=== PATIENT | female | born 1970 | race Caucasian/White ===

== ENCOUNTER → 2016-06-09 | Outpatient (CLI) | payer BC ==
[~2016-06-09] MED LIST: BCPILLS PO; CETI10CH PO
--- NOTE | 2016-06-09 16:26 | MAMMOGRAPHY REPORT ---
BILATERAL DIGITAL SCREENING MAMMOGRAM TOMOSYNTHESIS WITH CAD: 06/09/2016 TECHNIQUE: Breast tomosynthesis in addition to standard 2D mammography was performed. Current study was also evaluated with a Computer Aided Detection (CAD) system. COMPARISON: Comparison is made to exam dated: 09/15/2014 mammogram - [facility]. BREAST COMPOSITION: The tissue of both breasts is heterogeneously dense, which may obscure small ma sses. FINDINGS: No suspicious masses, calcifications, or areas of architectural distortion are noted in e ither breast. There has been no significant interval change compared to prior exams. A benign intra mammary lymph node is again seen within the right upper outer quadrant. Small mass in the right low er inner quadrant is stable and consistent with a skin mole. Scattered bilateral benign-appearing c alcifications are again noted. IMPRESSION: ACR BI-RADS CATEGORY 2: BENIGN There is no mammographic evidence of malignancy. A 1 year screening mammogram is recommended. The p atient will receive written notification of the results. Approximately 10% of breast cancers are not detected with mammography. A negative mammographic repor t should not delay biopsy if a clinically suggestive mass is present. Maria Guadalupe Dukes M.D. /:06/09/2016 12:40:26 Gold Leaf Roller: Myrna REID(Jessica)(M), [facility] letter sent: Normal 1/2 BI-RADS Code: ACR BI-RADS Category 2: Benign
== END | disposition home or self-care (01) ==
LOC: C.MAMM 09:55
PROVIDERS: ATTEND Obstetrics & Gynecology
DX: Z12.31 Encounter for screening mammogram for malignant neoplasm of breast (principal)

== ENCOUNTER 2017-03-05 19:37 | Emergency (ER) | payer BC ==
[~2017-03-05] VITALS: Ht 157.5 cm; Wt 53.9 kg
[~2017-03-05 19:37] MED LIST changes: -BCPILLS PO
[2017-03-05 19:40] VITALS: TEMP 36.6; Ht 157.5 cm; Wt 53.9 kg
[2017-03-05] MEDS ORDERED: CETI10CH PO (20:19)
[2017-03-05] MEDS ORDERED: FLUT0.15 NAE (20:19)
--- NOTE | 2017-03-05 20:35 | EMERGENCY ROOM VISIT NOTE ---
History Report prepared by Angelika: Mary Castaneda Under the Supervision of: Dr. Jordyn De La Cruz D.O. First contact with patient: 19:42 Chief Complaint: PALPITATIONS Stated Complaint: IRREGULAR HEART BEAT, PALPITATIONS History of Present Illness The patient is a 46 year old female who presents to the Emergency Room with complaints of worsening heart palpitations that started a few weeks ago. The patient notes that she started feeling the palpitations worsen a couple of days ago. She states that the palpitations were more consistent today than usual. She denies experiencing any patterns of the palpitations. The patient reports that she was experiencing some light headedness throughout the day today. The patient notes that she has recently introduced caffeine back into her diet in small amounts. The patient notes that there is a family history of a thyroid disfunction. She reports that she was tested for thyroid disfunction 2 years ago and the results were negative. The patient denies any pain, fatigue, swelling, cough, or shortness of breath. Source of History: patient Onset: a few weeks ago Position: other (heart palpitations ) Symptom Intensity: mild Quality: other (palpitations) Timing: worsening Associated Symptoms: No cough, No SOB, No fatigue Note: The patient denies any swelling. Review of Systems Pt denies headache, change in vision, fevers, chest pain, shortness of breath, nausea, vomiting, diarrhea, pain with urination, and melena. Past Medical & Surgical Medical Problems: (1) Exercise-induced asthma Family History Blood clots Social History Smoking Status: Never Smoker Smokeless Tobacco Use: No Drug Use: none Marital Status: single Occupation Status: employed Current/Historical Medications Scheduled Control Pills ( Control Pills), 1 TAB PO DAILY Cetirizine Hcl (Cetirizine Hcl), 10 MG PO DAILY Fluticasone Propionate (Nasal) (Flonase Allergy Relief), 2 SPRAYS SHAVON DAILY Allergies Coded Allergies: Erythromycin (Verified Allergy, Severe, HIVES WHEN USING OPTH OINT, ) Macrolides (Verified Allergy, Severe, HIVES WHEN USING OPTH OINT, 04/30/16 ) Penicillins (Verified Allergy, Severe, HIVES, AMOXIL, 04/30/16) Sulfa Drugs (Verified Allergy, Mild, 04/30/16) Physical Exam Vital Signs Date Time Temp Pulse Resp B/P (MAP) Pulse Ox O2 Delivery O2 Flow Rate FiO2 03/05/17 21:34 60 18 111/65 97 03/05/17 20:38 64 03/05/17 19:57 Room Air 03/05/17 19:40 36.6 83 20 133/83 100 Physical Exam GENERAL: alert, well appearing, well nourished, no distress, non-toxic EYE EXAM: normal conjunctiva, PERRL and EOM's grossly intact OROPHARYNX: no exudate, no erythema, lips, buccal mucosa, and tongue normal and mucous membranes are moist NECK: supple, no nuchal rigidity, no adenopathy, non-tender LUNGS: Clear to auscultation. Normal chest wall mechanics HEART: no murmurs, S1 normal and S2 normal. PBC noted on tele. ABDOMEN: abdomen soft, non-tender, normo-active bowel sounds, no masses, no rebound or guarding. BACK: Back is symmetrical on inspection and there is no deformity, no midline tenderness, no CVA tenderness. SKIN: no rashes and no bruising UPPER EXTREMITIES: upper extremities are grossly normal. LOWER EXTREMITIES: No pitting edema. NEURO EXAM: Normal sensorium, cranial nerves II-XII [grossly] intact, normal speech, no [gross] weakness of arms, no [gross] weakness of legs. [No drift. Finger to nose intact. Gross sensation intact.] Medical Decision & Procedures Laboratory Results 03/05/17 20:35 Red Blood Count 3.89, Mean Corpuscular Volume 93.8, Mean Corpuscular Hemoglobin 31.1, Mean Corpuscular Hemoglobin Concent 33.2, Mean Platelet Volume 9.9, Neutrophils (%) (Auto) 64.7, Lymphocytes (%) (Auto) 25.7, Monocytes (%) (Auto) 6.0, Eosinophils (%) (Auto) 3.2, Basophils (%) (Auto) 0.2, Neutrophils # (Auto) 3.42, Lymphocytes # (Auto) 1.36, Monocytes # (Auto) 0.32, Eosinophils # (Auto) 0.17, Basophils # (Auto) 0.01 03/05/17 20:35 Test 03/05/17 20:35 White Blood Count 5.29 K/uL (4.8-10.8) Red Blood Count 3.89 M/uL (4.2-5.4) Hemoglobin 12.1 g/dL (12.0-16.0) Hematocrit 36.5 % (37-47) Mean Corpuscular Volume 93.8 fL (80-100) Mean Corpuscular Hemoglobin 31.1 pg (25-34) Mean Corpuscular Hemoglobin Concent 33.2 g/dl (32-36) Platelet Count 201 K/uL (130-400) Mean Platelet Volume 9.9 fL (7.4-10.4) Neutrophils (%) (Auto) 64.7 % Lymphocytes (%) (Auto) 25.7 % Monocytes (%) (Auto) 6.0 % Eosinophils (%) (Auto) 3.2 % Basophils (%) (Auto) 0.2 % Neutrophils # (Auto) 3.42 K/uL (1.4-6.5) Lymphocytes # (Auto) 1.36 K/uL (1.2-3.4) Monocytes # (Auto) 0.32 K/uL (0.11-0.59) Eosinophils # (Auto) 0.17 K/uL (0-0.5) Basophils # (Auto) 0.01 K/uL (0-0.2) RDW Standard Deviation 41.4 fL (36.4-46.3) RDW Coefficient of Variation 12.3 % (11.5-14.5) Immature Granulocyte % (Auto) 0.2 % Immature Granulocyte # (Auto) 0.01 K/uL (0.00-0.02) Anion Gap 8.0 mmol/L (3-11) Est Creatinine Clear Calc Drug Dose 93.1 ml/min Estimated GFR () 127.8 Estimated GFR (Non- 110.3 BUN/Creatinine Ratio 13.0 (10-20) Calcium Level 8.8 mg/dl (8.5-10.1) Magnesium Level 2.1 mg/dl (1.8-2.4) Total Bilirubin 0.4 mg/dl (0.2-1) Aspartate Amino Transf (AST/SGOT) 17 U/L (15-37) Alanine Aminotransferase (ALT/SGPT) 22 U/L (12-78) Alkaline Phosphatase 39 U/L (45-117) Troponin I < 0.015 ng/ml (0-0.045) Total Protein 7.5 gm/dl (6.4-8.2) Albumin 3.8 gm/dl (3.4-5.0) Globulin 3.7 gm/dl (2.5-4.0) Albumin/Globulin Ratio 1.0 (0.9-2) Thyroid Stimulating Hormone (TSH) 3.200 uIu/ml (0.300-4.500) Laboratory results per my review. ECG Indication: other (heart palpiations) Rhythm: normal sinus Findings: PVC (occasional ), no acute ischemic change, other (normal axis, normal intervals) ED Course 1941: The patient was evaluated in room B9. A complete history and physical exam was performed. 2121: Upon reevaluation, the patient is feeling better. I discussed the findings and the treatment plan with the patient. She verbalizes agreement and understanding. She was discharged home. Medical Decision Differential diagnosis: Etiologies such as premature contractions, electrolyte abnormality, cardiac dysrhythmia, thyroid dysfunction, pulmonary embolism, infection, gastrointestinal, as well as others were entertained. Patient well-appearing here, occasional ectopy noted on telemetry. Patient otherwise a symptomatically rest. Discussed with patient limiting caffeine, adequate hydration, and close follow-up with family doctor as she may need additional evaluation by cardiology. I suspect ectopy noted on telemetry while not pathologic and not concerning for eminent cardiac disease, is likely contributing to her sense of palpitations. No evidence of infectious etiology, no evidence of thyroid storm, no evidence of a which light abnormality. VS stable. Discussed with patient symptoms to watch and return for, she verbalized understanding and was agreeable with plan. Medication Reconcilliation Current Medication List: was personally reviewed by me Blood Pressure Screening Patient's blood pressure: Normal blood pressure Impression Primary Impression: Palpitation Additional Impressions: PVC (premature ventricular contraction) PAC (premature atrial contraction) Scribe Attestation The scribe's documentation has been prepared under my direction and personally reviewed by me in its entirety. I confirm that the note above accurately reflects all work, treatment, procedures, and medical decision making performed by me. Departure Information Dispostion Home / Self-Care Referrals Manjit Helms M.D. (PCP) Patient Instructions My [facility] Additional Instructions Please stay well-hydrated and continue to make sure that you get plenty of sleep each night. Please avoid excess caffeine and alcohol use. Please avoid any additional decongestants. He may otherwise eat and exercise normally. Please follow up with your family doctor about the symptoms you've been having. They may recommend additional evaluation by cardiology. If you have any worsening symptoms or new concerns, please return to the emergency room. Problem Qualifiers
[2017-03-05 20:43] LABS: BASO % 0.2 %; BASO ABS # 0.01 K/uL (0-0.2); COMPLETE YES; EOS % 3.2 %; HEMATOCRIT 36.5 % (37-47); IG% 0.2 %; LYMPH % 25.7 %; LYMPH ABS # 1.36 K/uL (1.2-3.4); MEAN CELL VOLUME 93.8 fL (80-100); MEAN CORPUSCULAR HEMOGLOBIN 31.1 pg (25-34); MEAN CORPUSCULAR HGB CONC 33.2 g/dl (32-36); MEAN PLATELET VOLUME 9.9 fL (7.4-10.4); NEUT % 64.7 %; PLATELET COUNT 201 K/uL (130-400); RED BLOOD COUNT 3.89 M/uL (4.2-5.4); WHITE BLOOD COUNT 5.29 K/uL (4.8-10.8)
[2017-03-05 21:02] LABS: ALKALINE PHOSPHATASE 39 U/L (45-117); ALT/SGPT 22 U/L (12-78); AST/SGOT 17 U/L (15-37); BLOOD UREA NITROGEN 8 mg/dl (7-18); CALCIUM 8.8 mg/dl (8.5-10.1); CARBON DIOXIDE 27 mmol/L (21-32); CHLORIDE 104 mmol/L (98-107); CREATININE 0.61 mg/dl (0.60-1.20); GLUCOSE 115 mg/dl (70-99); MAGNESIUM 2.1 mg/dl (1.8-2.4); POTASSIUM 3.6 mmol/L (3.5-5.1); SODIUM 139 mmol/L (136-145)
[2017-03-05 21:34] VITALS: BP 111/65; PULSE 60; O2SAT 97
[2017-03-05] MEDS ORDERED: BCPILLS PO (22:21)
== END 2017-03-05 21:40 | disposition home or self-care (01) ==
LOC: C.EDB 19:38
DX: R00.2 Palpitations (principal); I49.3 Ventricular premature depolarization; I49.1 Atrial premature depolarization; J45.909 Unspecified asthma, uncomplicated

== ENCOUNTER → 2017-06-21 | Outpatient (CLI) | payer OTHER ==
[~2017-06-21] MED LIST changes: +BCPILLS PO; +FLUT0.15 NAE
== END | disposition home or self-care (01) ==
LOC: C.PAPS 11:35
PROVIDERS: ATTEND Obstetrics & Gynecology
DX: Z01.419 Encounter for gynecological examination (general) (routine) without abnormal findings (principal)

== ENCOUNTER → 2017-12-10 | Outpatient (CLI) | payer OTHER ==
--- NOTE | 2017-12-11 07:30 | MAMMOGRAPHY REPORT ---
BILATERAL DIGITAL SCREENING MAMMOGRAM TOMOSYNTHESIS WITH CAD: 12/10/2017 CLINICAL HISTORY: Routine screening. Patient has no complaints. TECHNIQUE: The study was acquired using full field digital technology and interpreted from soft copy. Breast tomosynthesis in addition to standard 2D mammography was performed. Current study was also ev aluated with a Computer Aided Detection (CAD) system. COMPARISON: Comparison is made to exams dated: 06/09/2016 mammogram and 09/15/2014 mammogram - [facility]. BREAST COMPOSITION: The tissue of both breasts is heterogeneously dense, which may obscure small mass es. FINDINGS: The parenchymal pattern is unchanged. No developing mass, architectural distortion or cluster of susp icious microcalcifications is seen in either breast. IMPRESSION: ACR BI-RADS CATEGORY 2: BENIGN There is no mammographic evidence of malignancy. A 1 year screening mammogram is recommended.( 019) The patient will receive written notification of the results. Some breast cancers are not detected with mammography. A negative mammographic report should not joss y biopsy if a clinically suggestive mass is present. Magy Esparza M.D. ay/:12/10/2017 16:09:15 Electroplating Technician: RT Vamshi(Jessica)(Sabrina)(BD), [facility] letter sent: Normal 1/2 BI-RADS Code: ACR BI-RADS Category 2: Benign
== END | disposition home or self-care (01) ==
LOC: C.MAMM 15:20
PROVIDERS: ATTEND Family Medicine
DX: Z12.31 Encounter for screening mammogram for malignant neoplasm of breast (principal)